=== PATIENT | female | born 1955 | race Hispanic/Latino ===

== ENCOUNTER → 2023-04-09 | Emergency (ER) | payer OTHER ==
--- OUTSIDE RECORDS SUMMARY | 2023-04-09 18:08 | XMS REPORT | Continuity of Care Document ---
Author Name Unknown Address [address] [facility] [address] [place] [address] [facility] thconnect Address [address] [facility] [place] [address] Care Team Providers Care Contract Lead Name Role Phone G125, Covid Vaccine - Pfizer Attending Clinician Unavailable Social History Social Habit Start Date Stop Date Quantity Comments Source Sex Assigned At 1955 00:00:00 1955 00:00:00 [facility] Smoking Status Start Date Stop Date Source Tobacco smoking consumption unknown [facility] Encounters Start Date/Time End Date/Time Encounter Type Admission Type Attending Clinicians Care Facility Care Department Encounter ID Source 2021-03-27 12:00:00 2021-03-27 12:10:00 Immunizati on G125, Covid Vaccine - Pfizer UTP [address] [id number] 3 [id number] [facility] 2021-03-27 12:00:00 2021-03-27 12:10:00 Immunizati on G125, Covid Vaccine - Pfizer UTP [address] [id number] 3 [id number] [facility]
--- NOTE | 2023-04-09 19:57 | RAD REPORT ---
EXAM DESCRIPTION: Marqeuz Single View04/09/2023 7:40 pm CLINICAL HISTORY: Palpitation COMPARISON: none FINDINGS: The lungs appear clear of acute infiltrate. The heart is normal size IMPRESSION: No acute abnormalities displayed
[2023-04-09 20:17] LABS: Absolute Lymphocytes (CBC) 1.4 K/uL (0.7-4.9); Hematocrit 42.8 % (36.0-45.0); Lymphocytes % 18.6 % (15.3-44.8); MCV 87.3 fL (80-100); MPV 8.6 fL (7.6-11.3); Platelets 234 thou/uL (152-406)
[2023-04-09 20:45] LABS: Magnesium 2.2 mg/dL (1.6-2.4); Potassium 3.7 mEq/L (3.5-5.1); Thyroid Stimulating Hormone 0.46 uIU/mL (0.358-3.740); Troponin High Sensitivity 15.8 pg/mL (<58.9)
--- NOTE | 2023-04-09 20:49 | EDPHYS ---
Physician Documentation [facility] Name: Shagufta Gomes Age: 67 yrs Sex: Female : 1955 Arrival Date: 04/09/2023 Time: 18:06 Bed 12 Private MD: ED Physician Berhane Bolaños HPI: 04/09 20:00 This 67 yrs old Female presents to ER via Wheelchair with complaints of High kb Blood Pressure. 20:00 Patient is a 67-year-old female with a history of hypertension, high cholesterol and kb hypothyroidism who presents for high blood pressure that started today. States she has had some palpitations over the last 8 days. Son reports blood pressure 153/101 with a pulse rate of 123 prior to arrival. Patient denies chest pain, shortness of breath, dizziness, headache.. Historical: - Allergies: 19:37 No Known Allergies; hb - Home Meds: 19:37 Synthroid Oral [Active]; losartan oral [Active]; atorvastatin oral [Active]; hb - PMHx: 19:38 THYROID DISEASE; Hypertensive disorder; hb - Immunization history:: Adult Immunizations up to date. - Social history:: Smoking status: Patient denies any tobacco usage or history of. ROS: 20:00 Constitutional: Negative for fever, chills, and weight loss, kb 20:00 Cardiovascular: Positive for palpitations, 20:00 All other systems are negative, Exam: 20:00 Constitutional: This is a well developed, well nourished patient who is awake, alert, kb and in no acute distress. Head/Face: Normocephalic, atraumatic. ENT: Moist Mucous membranes Cardiovascular: Regular rate Respiratory: Respirations even and unlabored. No increased work of breathing. Talking in full sentences Abdomen/GI: Soft, non-tender. No distention Skin: Warm, dry with normal turgor. Normal color. MS/ Extremity: Pulses equal, no cyanosis. Neurovascular intact. Full, normal range of motion. Neuro: Awake and alert, GCS 15, oriented to person, place, time, and situation. Moves all extremities. Normal gait. 20:00 ECG was reviewed by the Attending Physician. Vital Signs: 18:46 BP 151 / 67; Pulse 80; kb 19:35 BP 133 / 70; Pulse 67; Resp 16; Temp 98; Pulse Ox 98% ; hb 20:30 BP 130 / 62; Pulse 80; Resp 16; Pulse Ox 100% on R/A; pf1 MDM: 18:37 Patient medically screened. kb 20:01 Differential diagnosis: hypertensive crisis, Malignant HTN, Abnormal EKG. Data kb reviewed: vital signs, nurses notes. Historians other than the Patient: Daughter/Son: Son. 20:47 Counseling: I had a detailed discussion with the patient and/or guardian regarding the kb historical points, exam findings, and any diagnostic results supporting the discharge/admit diagnosis, lab results, radiology results, the need for outpatient follow up, a family practitioner, to return to the emergency department if symptoms worsen or persist or if there are any questions or concerns that arise at home. 04/09 18:45 Order name: Basic Metabolic Panel; Complete Time: 20:47 kb 04/09 18:45 Order name: CBC with Diff; Complete Time: 20:27 kb 04/09 18:45 Order name: Magnesium; Complete Time: 20:47 kb 04/09 18:45 Order name: NT PRO-BNP; Complete Time: 20:47 kb 04/09 18:45 Order name: Troponin HS; Complete Time: 20:47 kb 04/09 18:45 Order name: TSH; Complete Time: 20:47 kb 04/09 18:45 Order name: XRAY Chest (1 view); Complete Time: 20:00 kb 04/09 18:45 Order name: EKG; Complete Time: 18:46 kb 04/09 18:45 Order name: Cardiac monitoring; Complete Time: 20:07 kb 04/09 18:45 Order name: EKG - Nurse/Tech; Complete Time: 20:07 kb 04/09 18:45 Order name: IV Saline Lock; Complete Time: 20:07 kb 04/09 18:45 Order name: Labs collected and sent; Complete Time: 20:07 kb 04/09 18:45 Order name: O2 Per Protocol; Complete Time: 20:07 kb 04/09 18:45 Order name: O2 Sat Monitoring; Complete Time: 20:07 kb EC:00 Rate is 61 beats/min. Rhythm is regular. QRS [place] is Normal. AR interval is normal at kb 148 msec. QRS interval is normal at 94 msec. QT interval is normal at 418 msec. Administered Medications: No medications were administered Disposition: 04/10 06:59 Co-signature as Attending Physician, Berhane Bolaños MD I reviewed the patient's care rn provided by the Advanced Practice Provider and agree with the diagnosis and treatment plan. Disposition Summary: 04/09/23 20:48 Discharge Ordered Notes: Location: Home kb Condition: Stable kb Diagnosis - Essential (primary) hypertension kb Followup: kb - With: Emergency Department - When: As needed - Reason: Worsening of condition Followup: kb - With: Private Physician - When: 2 - 3 days - Reason: Recheck today's complaints, Continuance of care, Re-evaluation by your physician Discharge Instructions: - Discharge Summary Sheet kb - Hypertension, Adult, [id number] kb Forms: - Medication Reconciliation Form kb - Thank You Letter kb - Antibiotic Education kb - Prescription Opioid Use kb - Patient Portal Instructions kb - Leadership Thank You Letter kb Signatures: Dispatcher [employer] Lizet Aden, LESLIE-C BOOKMOBILE CLERK-CkBerhane Pisano MD MD rn Baxter, Heather, RN RN
--- NOTE | 2023-04-09 20:49 | ER ---
Nurse's Notes [facility] Name: Shagufta Gomes Age: 67 yrs Sex: Female : 1955 Arrival Date: 04/09/2023 Time: 18:06 Bed 12 Private MD: Diagnosis: Essential (primary) hypertension Presentation: 04/09 19:35 Chief complaint: Patient's son or daughter states: PALPITATIONS AND SUBJECTIVE HTN hb TODAY. Coronavirus screen: At this time, the client does not indicate any symptoms associated with coronavirus-19. Ebola Screen: No symptoms or risks identified at this time. Initial Sepsis Screen: Does the patient meet any 2 criteria? No. Patient's initial sepsis screen is negative. Does the patient have a suspected source of infection? No. Patient's initial sepsis screen is negative. Risk Assessment: Do you want to hurt yourself or someone else? Patient reports no desire to harm self or others. Onset of symptoms was April 09, 2023. 19:35 Method Of Arrival: Wheelchair hb 19:35 Acuity: RICK 4 hb Triage Assessment: 19:37 General: Appears in no apparent distress. Behavior is calm, cooperative, appropriate hb for age. Pain: Denies pain. Historical: - Allergies: 19:37 No Known Allergies; hb - Home Meds: 19:37 Synthroid Oral [Active]; losartan oral [Active]; atorvastatin oral [Active]; hb - PMHx: 19:38 THYROID DISEASE; Hypertensive disorder; hb - Immunization history:: Adult Immunizations up to date. - Social history:: Smoking status: Patient denies any tobacco usage or history of. Screenin:00 [facility] ED Fall Risk Assessment (Adult) History of falling in the last 3 months, pf1 including since admission No falls in past 3 months (0 pts) Confusion or Disorientation No (0 pts) Intoxicated or Sedated No (0 pts) Impaired Gait No (0 pts) Mobility Assist Device Used No (0 pt) Altered Elimination No (0 pt) Score/Fall Risk Level 0 - 2 = Low Risk Oriented to surroundings, Maintained a safe environment, Educated pt \T\ family on fall prevention, incl call for assistance when getting out of bed, Assessed \T\ reinforced patient's understanding of fall precautions, Provided non-skid footwear, Hourly rounding (assess needs \T\ fall precautionary measures) done, Used ambulatory aids as needed (educated on \T\ assisted with), Used gait belt as appropriate. 20:00 Abuse screen: Denies threats or abuse. Nutritional screening: No deficits noted. pf1 Tuberculosis screening: No symptoms or risk factors identified. Assessment: 19:49 General: Appears in no apparent distress. comfortable, well groomed, well developed, pf1 Behavior is calm, cooperative, appropriate for age, quiet. 19:49 Pain: Denies pain. Neuro: No deficits noted. Level of Consciousness is awake, alert, pf1 obeys commands, Oriented to person, place, time, situation. Cardiovascular: Reports elevated BP Capillary refill < 3 seconds Patient's skin is warm and dry. Respiratory: No deficits noted. Airway is patent Respiratory effort is even, unlabored, Respiratory pattern is regular, symmetrical. GI: No deficits noted. No signs and/or symptoms were reported involving the gastrointestinal system. : No deficits noted. No signs and/or symptoms were reported regarding the genitourinary system. EENT: No deficits noted. No signs and/or symptoms were reported regarding the EENT system. Derm: No deficits noted. No signs and/or symptoms reported regarding the dermatologic system. 20:30 Reassessment: Patient appears in no apparent distress at this time. Patient and/or pf1 family updated on plan of care and expected duration. Pain level reassessed. Patient is alert, oriented x 3, equal unlabored respirations, skin warm/dry/pink. Patient states symptoms have improved. Vital Signs: 18:46 BP 151 / 67; Pulse 80; kb 19:35 BP 133 / 70; Pulse 67; Resp 16; Temp 98; Pulse Ox 98% ; hb 20:30 BP 130 / 62; Pulse 80; Resp 16; Pulse Ox 100% on R/A; pf1 ED Course: 18:08 Patient arrived in ED. ts1 18:36 Lizet Nolasco FNP-C [facility]. kb 18:36 Berhane Bolaños MD is Attending Physician. kb 19:36 Triage completed. hb 19:38 Arm band placed on. hb 19:42 XRAY Chest (1 view) In Process Unspecified. EDMS 19:49 Patient has correct armband on for positive identification. Bed in low position. Call pf1 light in reach. 20:07 Basic Metabolic Panel Sent. kmf 20:07 CBC with Diff Sent. kmf 20:07 Magnesium Sent. kmf 20:07 NT PRO-BNP Sent. kmf 20:07 Troponin HS Sent. kmf 20:07 Inserted saline lock: 20 gauge in left antecubital area, using aseptic technique. Blood kmf collected. 21:06 Provided Education on: follow up and BP log. pf1 21:12 No provider procedures requiring assistance completed. IV discontinued, intact, pf1 bleeding controlled, No redness/swelling at site. Pressure dressing applied. Administered Medications: No medications were administered Medication: 21:06 VIS not applicable for this client. pf1 Outcome: 20:48 Discharge ordered by . kb 21:06 Discharged to home ambulatory, with family, pf1 21:06 Condition: improved 21:06 Discharge instructions given to patient, family, Instructed on discharge instructions, follow up and referral plans. Demonstrated understanding of instructions, follow-up care, 21:06 Patient left the ED. pf1 Signatures: Dispatcher [employer] EDMS Lizet Nolasco, PSYCHOLOGICAL ASSISTANT-C PSYCHOLOGICAL ASSISTANT-Lindsay Goodwin RN RN Mariah Del Angel RN RN pf1 Arin Erwin PAS PAS ts1 Lee Ann De Los Santos kmf Corrections: (The following items were deleted from the chart) 04/10 06:00 04/09 21:12 Patient left the ED. pf1 pf1
[2023-04-09 22:02] VITALS: BP 133/70; TEMP 98; O2SAT 98
== END ==
LOC: ER 18:06
DX: I10 Essential (primary) hypertension (principal)
CPT/HCPCS: 36415; 71045; 80048; 83735; 83880; 84443; 84484; 85025; 93005; 99283

== ENCOUNTER 2023-06-07 09:32 | Day surgery (SDC) | payer OTHER ==
[2023-06-03 13:09] LABS: Absolute Lymphocytes (CBC) 1.8 K/uL (0.7-4.9); Hematocrit 42.1 % (36.0-45.0); Lymphocytes % 29.5 % (15.3-44.8); MCV 86.4 fL (80-100); MPV 8.4 fL (7.6-11.3); Platelets 245 thou/uL (152-406); RBC Red Blood Cell Count 4.87 M/uL (3.86-4.86)
[2023-06-03 13:13] LABS: Protime INR 1.1
[2023-06-07] MEDS ORDERED: LIDOCAINE 1% 20 ML MDV ONE (11:36)
[2023-06-07] MEDS ORDERED: HEPA 1000U/500MLS 2,000 UNIT/1,000 ML BAG IV ONE (11:36)
[2023-06-07] MEDS ORDERED: VERAPAMIL HCL 10 MG/4 ML VIAL IV ONE (11:59)
[2023-06-07] MEDS ORDERED: FENTANYL CITR 100 MCG/2 ML ONE (11:59)
[2023-06-07] MEDS ORDERED: ATROPINE SULF 1 MG/10 ML SYR IV ONE (11:59)
[2023-06-07] MEDS ORDERED: MIDAZOLAM HCL 2 MG/2 ML INJ ONE (11:59)
[2023-06-07] MEDS ORDERED: TICAGRELOR 90 MG TABLET PO ONE (12:00)
[2023-06-07] MEDS ORDERED: HEPARIN 10,000 UNIT/10 ML VIAL IV ONE (12:00)
[2023-06-07] MEDS ORDERED: CLOPIDOGREL 75 MG TABLET ONE (12:00)
[2023-06-07] MEDS ORDERED: HEPARIN 5000 UNIT/ML 1 ML VIAL ONE (12:00)
[2023-06-07] MEDS ORDERED: ASPIRIN 325 MG TAB ONE (12:00)
[2023-06-07] MEDS ORDERED: REGADENOSON 0.4 MG/5 ML SYR IV ONE (12:40)
[2023-06-07] MEDS: NA CHLORIDE 0.9% 500 ML ONE (13:20)
[2023-06-07 14:38] VITALS: TEMP 97.3
[2023-06-07 17:38] VITALS: BP 134/61; O2SAT 97
== END 2023-06-07 17:15 | disposition home or self-care (01) ==
LOC: CCL 09:32
PROVIDERS: ATTEND Internal Medicine
DX: I25.10 Atherosclerotic heart disease of native coronary artery without angina pectoris (principal); I70.223 Atherosclerosis of native arteries of extremities with rest pain, bilateral legs; I10 Essential (primary) hypertension; E78.2 Mixed hyperlipidemia; Z87.891 Personal history of nicotine dependence; Z79.899 Other long term (current) drug therapy; Z82.49 Family history of ischemic heart disease and other diseases of the circulatory system
CPT/HCPCS: 36415; 76937; 80048; 85025; 85347; 85610; 85730; 93458; 93571; 99152; 99153; C1769; C1893; J0461; J1644; J2001; J2250; J2785; J3010; J7040; Q9967

== ENCOUNTER 2024-03-11 23:52 | Emergency (ER) | payer OTHER ==
--- OUTSIDE RECORDS SUMMARY | 2024-03-11 23:54 | XMS REPORT | Continuity of Care Document ---
Author Name Unknown Address [address] [facility] [address] [place] [address] [facility] thconnect Address [address] [facility] [address] [place] [address] Care Team Providers Care Associate Principal Name Role Phone G125, Covid Vaccine - Pfizer Attending Clinician Unavailable Social History Social Habit Start Date Stop Date Quantity Comments Source Sex Assigned At 1955 00:00:00 1955 00:00:00 [facility] Sm[facility] Status Start Date Stop Date Source Tobacco smoking consumption unknown [facility] Encounters Start Date/Time End Date/Time Encounter Type Admission Type Attending Clinicians Care Facility Care Department Encounter ID Source 2021-03-27 12:00:00 2021-03-27 12:10:00 Immunizati on G125, Covid Vaccine - Pfizer UTP [address] [id number] [facility] 2021-03-27 12:00:00 2021-03-27 12:10:00 Immunizati on G125, Covid Vaccine - Pfizer UTP [address] [id number] [facility]
[2024-03-12] MEDS ORDERED: NA CHLORIDE 0.9% 1,000 ML ONE (00:32)
[2024-03-12] MEDS ORDERED: ONDANSETRON 4 MG/2 ML VIAL ONE (00:32)
[2024-03-12 01:00] LABS: Absolute Eosinophils 0.1 K/uL (0-0.5); Absolute Lymphocytes (CBC) 1.1 K/uL (0.7-4.9); Absolute Monocytes 0.2 K/uL (0.1-1.3); Absolute Neutrophil 10.4 K/uL (1.8-8.0); Basophils % 0.2 % (0-1.3); Eosinophils % 0.5 % (0-4.4); Hematocrit 46.2 % (36.0-45.0); Hemoglobin 15.4 g/dL (12.0-15.0); Lymphocytes % 9.3 % (15.3-44.8); MCH 29.5 pg (27.0-35.0); MCHC 33.4 g/dL (32.0-36.0); MCV 88.3 fL (80-100); MPV 9.7 fL (7.6-11.3); Monocytes % 2.1 % (3.3-12.3); Neutrophils % 87.9 % (41.7-73.7); Platelets 239 thou/uL (152-406); RBC Red Blood Cell Count 5.24 M/uL (3.86-4.86); Red Cell Distribution Width 13.7 % (12.1-15.2)
[2024-03-12 01:10] LABS: Albumin 4.3 g/dL (3.4-5.0); Albumin/Globulin Ratio 0.9 (1.1-1.8); Anion Gap 11.6 mEq/L (5.0-15.0); Bilirubin Total 0.9 mg/dL (0.2-1.0); Globulin 4.6 g/dL (2.3-3.5); Potassium 3.6 mEq/L (3.5-5.1); Protein, Total 8.9 g/dL (6.4-8.2)
[2024-03-12 02:29] LABS: Band Neutrophils 14 % (0-1); Differential Total Cells Count 100; Eosinophils 1 % (0-3); Lymphocytes 10 % (15-42); Monocytes 3 % (0-10); Reactive Lymphocytes 4 %; Segmented Neutrophils 68 % (40-80)
[2024-03-12 02:30] LABS: Blood Morphology Comment NOT SEEN (NOT SEEN); Platelet Estimate ADEQ
[2024-03-12 02:40] LABS: Specific Gravity > 1.030 (1.005-1.030); Sqamous Epithelial <5 /HPF (None Seen); Urine Bacteria None Seen /HPF (<20); Urine Bilirubin NEGATIVE (Negative); Urine Blood Trace (Negative); Urine Clarity Clear (Clear); Urine Color Colorless (Yellow); Urine Culture Reflex Order NOT NEEDED; Urine Glucose NEGATIVE (Negative); Urine Ketones 1+ (Negative); Urine Microscopic Reflex YN ORDER UMIC; Urine Mucus Slight /HPF (None Seen); Urine Nitrite NEGATIVE (Negative); Urine Protein NEGATIVE (Negative); Urine RBC <5 /HPF (None Seen); Urine Urobilinogen Normal (Normal); Urine WBC <5 /HPF (<5); Urine pH 5.5 (5.0-7.0)
--- NOTE | 2024-03-12 03:12 | EDPHYS ---
Physician Documentation [facility] Name: Shagufta Gomes Age: 68 yrs Sex: Female : 1955 Arrival Date: 03/11/2024 Time: 23:52 Bed 16 Private MD: ED Physician Wade Mark HPI: 03/12 00:21 This 68 yrs old Female presents to ER via Unassigned with complaints of sp3 Nausea/Vomiting/Diarrhea. 00:21 68-year-old female with a history of hypertension now presents to the ED with chief sp3 complaint abdominal pain, vomiting and diarrhea. She denies any mucus or blood in her emesis or stool. Possible bad food intake with tacos and [employer] earlier today. Symptoms all started around 8 PM. She denies any past surgical history. Review of systems negative for headache, neck pain, fever, URI symptoms, chest pain, shortness of breath, back pain, symptoms, [employer] S[employer] symptoms, rash, bleeding, syncope, near syncope, focal neurological deficit, known sick contacts, travel history, or any other signs or symptoms on ROS at this time.. Historical: - Allergies: 00:15 No Known Allergies; rg5 - PMHx: 00:15 Hypertensive disorder; thyroid disease; rg5 - Immunization history:: Adult Immunizations not up to date. - Infectious Disease History:: Denies. - Social history:: Smoking status: Patient denies any tobacco usage or history of. ROS: 00:22 Constitutional: Negative for fever, chills, and weight loss, Eyes: Negative for injury, sp3 pain, redness, and discharge, Neck: Negative for injury, pain, and swelling, Cardiovascular: Negative for chest pain, palpitations, and edema, Respiratory: Negative for shortness of breath, cough, wheezing, and pleuritic chest pain, Back: Negative for injury and pain, : Negative for injury, bleeding, discharge, and swelling, MS/Extremity: Negative for injury and deformity, Skin: Negative for injury, rash, and discoloration, Neuro: Negative for headache, weakness, numbness, tingling, and seizure, Psych: Negative for depression, anxiety, suicide ideation, homicidal ideation, and hallucinations, Allergy/Immunology: Negative for hives, rash, and allergies, Endocrine: Negative for neck swelling, polydipsia, polyuria, polyphagia, and marked weight changes, Hematologic/Lymphatic: Negative for swollen nodes, abnormal bleeding, and unusual bruising, 00:22 All other systems are negative, Exam: 00:22 Constitutional: This is a well developed, well nourished patient who is awake, alert, sp3 and in no acute distress. Head/Face: Normocephalic, atraumatic. Eyes: Pupils equal round and reactive to light, extra-ocular motions intact. Lids and lashes normal. Conjunctiva and sclera are non-icteric and not injected. Cornea within normal limits. Periorbital areas with no swelling, redness, or edema. ENT: Nares patent. No nasal discharge, no septal abnormalities noted. External auditory canals are clear. Oropharynx with no redness, swelling, or masses, exudates, or evidence of obstruction, uvula midline. Mucous membranes moist. Neck: Trachea midline, no thyromegaly or masses palpated, and no cervical lymphadenopathy. Supple, full range of motion without nuchal rigidity, or vertebral point tenderness. No Meningismus. Chest/axilla: Normal chest wall appearance and motion. Nontender with no deformity. No lesions are appreciated. Cardiovascular: Regular rate and rhythm with a normal S1 and S2. No gallops, murmurs, or rubs. Normal PMI, no JVD. No pulse deficits. Respiratory: Lungs have equal breath sounds bilaterally, clear to auscultation and percussion. No rales, rhonchi or wheezes noted. No increased work of breathing, no retractions or nasal flaring. Back: No spinal tenderness. No costovertebral tenderness. Full range of motion. Skin: Warm, dry with normal turgor. Normal color with no rashes, no lesions, and no evidence of cellulitis. MS/ Extremity: Pulses equal, no cyanosis. Neurovascular intact. Full, normal range of motion. Neuro: Awake and alert, GCS 15, oriented to person, place, time, and situation. Cranial nerves II-XII grossly intact. Motor strength 5/5 in all extremities. Sensory grossly intact. Cerebellar exam normal. Normal gait. Psych: Awake, alert, with orientation to person, place and time. Behavior, mood, and affect are within normal limits. 00:22 Abdomen/GI: Diffuse pain to palpation without peritoneal signs, rebound or guarding., Vital Signs: 00:15 BP 132 / 65; Pulse 78; Resp 17; Temp 98.3; Pulse Ox 96% on R/A; Weight 90.72 kg; Height rg5 5 ft. 4 in. ; Pain 8/10; 01:30 BP 149 / 64; Pulse 83; Resp 17; Pulse Ox 95% on R/A; rg5 02:12 BP 143 / 55; Pulse 75; Resp 17; Pulse Ox 97% on R/A; rg5 03:17 BP 139 / 67; Pulse 77; Resp 17; Temp 98; Pulse Ox 97% on R/A; Pain 0/10; rg5 00:15 Body Mass Index 34.33 (90.72 kg, 162.56 cm) rg5 00:15 Pain Scale: Adult rg5 03:17 Pain Scale: Adult rg5 MDM: 00:13 Medical Screening Exam initiated sp3 00:22 Data reviewed: vital signs, nurses notes, lab test result(s), radiologic studies. ED sp3 course: 68-year-old female with diffuse abdominal pain, vomiting and diarrhea. Differential diagnosis includes foodborne illness, viral illness, biliary pathology, pancreatitis, diverticulitis, other GI pathology, among others. I am not highly suspicious for , [employer] or vascular etiology. Workup will include CT scan of the abdomen pelvis with IV contrast, urinalysis, general labs, IV fluids and ondansetron IV for symptomatic control. Disposition pending workup and patient course.. 03:11 ED course: CT scan demonstrates diffuse enteritis without surgical pathology. Will sp3 discharge on Cipro and Flagyl and ondansetron.. 12 00:20 Order name: CBC with Diff; Complete Time: 02:41 sp3 03/12 00:20 Order name: CMP; Complete Time: 02:13 sp3 12 00:20 Order name: Lipase; Complete Time: 02:13 sp3 03/12 00:20 Order name: Urinalysis w/ reflexes; Complete Time: 02:41 sp3 12 00:20 Order name: Lactate w/ 2H reflex if indic.; Complete Time: 02:13 sp3 03/12 01:10 Order name: Manual Differential; Complete Time: 02:41 EDMS 03/12 00:20 Order name: CT Abd/Pelvis - IV Contrast Only sp3 03/12 00:20 Order name: IV Saline Lock; Complete Time: 00:24 sp3 03/12 00:20 Order name: Labs collected and sent; Complete Time: 00:24 sp3 Administered Medications: 00:36 Drug: Ondansetron IVP 4 mg IVP once; over 2 minutes Route: IVP; Site: left antecubital; rg5 01:21 Follow up: Response: No adverse reaction rg5 00:36 Drug: NS 0.9% IV 1000 ml IV at 1 bolus Per protocol; to be given as a bolus over 60 rg5 minutes Route: IV; Rate: 1 bolus; Site: left antecubital; 02:00 Follow up: IV Status: Completed infusion; IV Intake: 1000ml rg5 Disposition Summary: 03/12/24 03:11 Discharge Ordered Notes: Location: Home sp3 Condition: Stable sp3 Diagnosis - Enteritis, vomiting, diarrhea sp3 Followup: sp3 - With: Private Physician - When: Upon discharge from the Emergency Department - Reason: Continuance of care Discharge Instructions: - Discharge Summary Sheet sp3 - Food Poisoning sp3 Forms: - Medication Reconciliation Form sp3 - Antibiotic Education sp3 - Prescription Opioid Use sp3 - Patient Portal Instructions sp3 - Leadership Thank You Letter sp3 Prescriptions: - Cipro 250 mg Oral tablet - take 1 tablet ORAL route every 12 hours for 7 days; 14 tablet; Refills: 0, sp3 Product Selection Permitted - Flagyl 500 mg Oral tablet - take 1 tablet ORAL route every 8 hours for 7 days; 21 tablet; Refills: 0, sp3 Product Selection Permitted - ondansetron 8 mg Oral Tablet,disintegrating - take 1 tablet ORAL route every 12 hours; 15 tablet; Refills: 0, Product sp3 Selection Permitted Signatures: Dispatcher [employer] Wade Braun MD MD sp3 Leo Bowser, RN RN rg5
--- NOTE | 2024-03-12 03:12 | ER ---
Nurse's Notes [facility] Name: Shagufta Gomes Age: 68 yrs Sex: Female : 1955 Arrival Date: 03/11/2024 Time: 23:52 Bed 16 Private MD: Diagnosis: Enteritis, vomiting, diarrhea Presentation: 03/12 00:15 Chief complaint: Patient states: had a diarrhea, nausea \T\ vomiting since 2000hrs last rg5 night. 00:15 Coronavirus screen: Client denies travel out of the [place] in the last 14 days. Ebola rg5 Screen: Patient negative for fever greater than or equal to 101.5 degrees Fahrenheit, and additional compatible Ebola Virus Disease symptoms. Initial Sepsis Screen: Does the patient meet any 2 criteria? No. Patient's initial sepsis screen is negative. Does the patient have a suspected source of infection? No. Patient's initial sepsis screen is negative. Risk Assessment: Do you want to hurt yourself or someone else? Patient reports no desire to harm self or others. Onset of symptoms was March 11, 2024 at 20:00. 00:15 Method Of Arrival: Wheelchair rg5 00:15 Acuity: RICK 3 rg5 Triage Assessment: 00:15 General: Appears in no apparent distress. Behavior is calm, cooperative. Pain: rg5 Complains of pain in left lower quadrant Pain currently is 8 out of 10 on a pain scale. Quality of pain is described as crampy, Pain began 4 hours ago. Is intermittent. EENT: No deficits noted. Neuro: Level of Consciousness is awake, alert, obeys commands, Oriented to person, place, time. Cardiovascular: Denies chest pain, Heart tones S1 S2 Patient's skin is warm and dry. GI: Abdomen is round Bowel sounds present in right lower quadrant Reports diarrhea, nausea, vomiting. : No signs and/or symptoms were reported regarding the genitourinary system. Derm: Skin is intact, Skin is dry, Skin is normal. Musculoskeletal: Circulation, motion, and sensation intact. Historical: - Allergies: 00:15 No Known Allergies; rg5 - PMHx: 00:15 Hypertensive disorder; thyroid disease; rg5 - Immunization history:: Adult Immunizations not up to date. - Infectious Disease History:: Denies. - Social history:: Smoking status: Patient denies any tobacco usage or history of. Screenin:15 [facility] ED Fall Risk Assessment (Adult) History of falling in the last 3 months, rg5 including since admission No falls in past 3 months (0 pts) Confusion or Disorientation No (0 pts) Intoxicated or Sedated No (0 pts) Impaired Gait No (0 pts) Mobility Assist Device Used No (0 pt) Altered Elimination No (0 pt) Score/Fall Risk Level 0 - 2 = Low Risk Oriented to surroundings, Maintained a safe environment, Hourly rounding (assess needs \T\ fall precautionary measures) done. Abuse screen: Denies threats or abuse. Nutritional screening: No deficits noted. Tuberculosis screening: No symptoms or risk factors identified. Assessment: 00:44 Reassessment: No changes from previously documented assessment. . rg5 01:25 Reassessment: Patient and/or family updated on plan of care and expected duration. Pain rg5 level reassessed. Patient is alert, oriented x 3, equal unlabored respirations, skin warm/dry/pink. 02:00 Reassessment: Patient and/or family updated on plan of care and expected duration. Pain rg5 level reassessed. Patient is alert, oriented x 3, equal unlabored respirations, skin warm/dry/pink. 03:16 Reassessment: Patient and/or family updated on plan of care and expected duration. Pain rg5 level reassessed. Patient is alert, oriented x 3, equal unlabored respirations, skin warm/dry/pink. Patient states feeling better. Patient states symptoms have improved. Vital Signs: 00:15 BP 132 / 65; Pulse 78; Resp 17; Temp 98.3; Pulse Ox 96% on R/A; Weight 90.72 kg; Height rg5 5 ft. 4 in. ; Pain 8/10; 01:30 BP 149 / 64; Pulse 83; Resp 17; Pulse Ox 95% on R/A; rg5 02:12 BP 143 / 55; Pulse 75; Resp 17; Pulse Ox 97% on R/A; rg5 03:17 BP 139 / 67; Pulse 77; Resp 17; Temp 98; Pulse Ox 97% on R/A; Pain 0/10; rg5 00:15 Body Mass Index 34.33 (90.72 kg, 162.56 cm) rg5 00:15 Pain Scale: Adult rg5 03:17 Pain Scale: Adult rg5 ED Course: 03/11 23:55 Patient arrived in ED. [email or web address] 03/12 00:00 Wade Mark MD is Attending Physician. sp3 00:12 Leo Bowser, RN is Primary Nurse. rg5 00:15 Arm band placed on left wrist. rg5 00:15 Patient has correct armband on for positive identification. Bed in low position. Call rg5 light in reach. Side rails up X 1. Door closed. Noise minimized. 00:15 No provider procedures requiring assistance completed. Inserted saline lock: 20 gauge rg5 in left antecubital area, using aseptic technique. Blood collected. Flushed with 10 mL NS. 00:40 Triage completed. rg5 01:30 CT Abd/Pelvis - IV Contrast Only In Process Unspecified. EDMS 02:22 Urinalysis w/ reflexes Sent. oe 03:18 Provided Education on: post er care done. rg5 03:18 bleeding controlled, No redness/swelling at site. Pressure dressing applied. rg5 Administered Medications: 00:36 Drug: Ondansetron IVP 4 mg IVP once; over 2 minutes Route: IVP; Site: left antecubital; rg5 01:21 Follow up: Response: No adverse reaction rg5 00:36 Drug: NS 0.9% IV 1000 ml IV at 1 bolus Per protocol; to be given as a bolus over 60 rg5 minutes Route: IV; Rate: 1 bolus; Site: left antecubital; 02:00 Follow up: IV Status: Completed infusion; IV Intake: 1000ml rg5 Medication: 00:15 VIS not applicable for this client. rg5 Intake: 02:00 IV: 1000ml; Total: 1000ml. rg5 Outcome: 03:11 Discharge ordered by . sp3 03:28 Discharged to home via wheelchair, rg5 03:28 Condition: stable 03:28 Discharge instructions given to patient, Instructed on discharge instructions, follow up and referral plans. Demonstrated understanding of instructions, follow-up care, medications, Prescriptions given X 3, 03:30 Patient left the ED. rg5 Signatures: Dispatcher [employer] Peterson Wilkes Wade Mark MD MD sp3 Laverne Jackson 6 Leo Bowser, RN RN rg5
[2024-03-12 05:02] VITALS: O2SAT 97
[2024-03-12 05:03] VITALS: BP 139/67; TEMP 98
--- NOTE | 2024-03-12 05:56 | RAD REPORT ---
EXAM DESCRIPTION: CT ABDOMEN PELVIS WITH IV CONTRAST 03/12/2024 2:11 AM [facility] CLINICAL HISTORY: 68 years, Female, Abdominal pain. COMPARISON: None. PROCEDURE: Contrast-enhanced images of the abdomen and pelvis were performed from the lung bases to the ischial tuberosities after the administration of IV contrast. In addition multiplanar reformats in the coronal and sagittal plane were obtained and reviewed. An individualized dose optimization technique, Automated Exposure Control, was utilized for the perfo rmed procedure. FINDINGS: Lung bases: The lung bases demonstrate to be clear. Liver: The liver demonstrated presence of decreased attenuation corresponding to mild fatty infiltrat ion. Gallbladder: The gallbladder is partially contracted most likely related to lack of fasting. No signi ficant filling defects and/or abnormality is identified. Adrenal glands: The adrenal glands demonstrate to be normal. Pancreas: The pancreas demonstrate to be normal. Spleen: The spleen demonstrate to be within normal limits. Kidneys: The kidneys demonstrate normal uptake of contrast media. There is no evidence for nephroli thiasis and/or hydronephrosis. GI: Grossly the unopacified stomach, small bowel and large bowel demonstrate to be within normal limi ts. There are minimal prominent proximal small bowel loops with minimal enhancement of the proximal ligament findings are nonspecific, possibility of mild enteritis and/or ileus could be of considerati on on axial image [id number]. No evidence for bowel dilatation and/or free air. The appendix is normal. The left-sided colon/sigmoid colon demonstrates presence of minimal diverticulosis. : The urinary bladder demonstrate to be unremarkable. Genitalia: The uterus demonstrate to be within normal limits. There are normal adnexal structures. Abdominal aorta: The aorta demonstrated presence of minimal peripheral atheromatous plaque at the aor tic bifurcation. Retroperitoneum: There is no retroperitoneal lymphadenopathy. There is no evidence for ascites and/or abnormal fluid collections. Bones: The bony structures demonstrate to be within normal limits. No evidence for compression deform ity and/or significant skeletal lesions. Soft tissues: The soft tissues demonstrate to be unremarkable. IMPRESSION: Minimal prominent proximal small bowel loops with minimal enhancement of the proximal ligament findin gs are nonspecific, possibility of mild enteritis and/or ileus could be of consideration. Minimal diverticulosis without evidence of acute diverticulitis. Mild fatty infiltration of the liver. Electronically signed by: Fawad Lundberg MD 03/12/2024 02:54 AM BRICK B[facility]NER Due to temporary technical issues with the [employer] reporting system, reports are being juan ramon d by the in-house radiologist without review as a courtesy to ensure prompt reporting the interpreting radiologist is fully responsible for the content of the report. Transcribed Date/Time: 03/12/2024 5:56 AM
== END 2024-03-12 03:30 | disposition home or self-care (01) ==
LOC: ER 23:52
DX: K52.9 Noninfective gastroenteritis and colitis, unspecified (principal); I10 Essential (primary) hypertension
CPT/HCPCS: 96361; 85025; 81001; 36415; 83605; 83690; 80053; 74177; 96374; 99284; Q9967; J2405; J7030